=== PATIENT | female | born 1975 | race Caucasian/White ===

== ENCOUNTER 2023-02-27 21:58 | Inpatient (IN) ==
[2023-02-27] MEDS ORDERED: Al Hydrox/Mg Hydrox/Simet LIQ 30 ML UDC PO PRN (22:03)
[2023-02-28] MEDS: Vitamin THERAPEUTIC TAB PO SCH (09:25)
[2023-03-01] MEDS: Vitamin THERAPEUTIC TAB PO SCH (08:28)
[2023-03-01] MEDS ORDERED: Nicotine Lozenge mini 2 MG LOZNG.MINI MT PRN (11:45)
[2023-03-01] MEDS: Nicotine PATCH 21 MG/24 HR PATCH TRANSDERM SCH (12:37)
[2023-03-01] MEDS: Nicotine GUM 4MG FRUIT FLAVOR PO PRN (12:38)
[2023-03-02] MEDS: Nicotine PATCH 21 MG/24 HR PATCH TRANSDERM SCH (07:30)
[2023-03-02] MEDS: Vitamin THERAPEUTIC TAB PO SCH (07:31)
[2023-03-02 08:07] LABS: HDL Cholesterol 124.2 mg/dL
[2023-03-02] MEDS: Nicotine GUM 4MG FRUIT FLAVOR PO PRN ×3 (08:23→17:41)
[2023-03-02] MEDS: Calcium Carb (TUMS) 500 mg CHEW TAB PO SCH (20:13)
[2023-03-03] MEDS: Nicotine PATCH 21 MG/24 HR PATCH TRANSDERM SCH (07:11)
[2023-03-03] MEDS: Vitamin THERAPEUTIC TAB PO SCH (07:12)
[2023-03-03] MEDS: Calcium Carb (TUMS) 500 mg CHEW TAB PO SCH ×2 (07:12→20:11)
[2023-03-03] MEDS: Nicotine GUM 4MG FRUIT FLAVOR PO PRN ×5 (07:14→19:32)
[2023-03-04] MEDS: Nicotine PATCH 21 MG/24 HR PATCH TRANSDERM SCH (08:09)
[2023-03-04] MEDS: Calcium Carb (TUMS) 500 mg CHEW TAB PO SCH ×2 (08:12→20:07)
[2023-03-04] MEDS: Vitamin THERAPEUTIC TAB PO SCH (08:13)
[2023-03-04] MEDS: Nicotine GUM 4MG FRUIT FLAVOR PO PRN ×4 (08:15→17:41)
[2023-03-05] MEDS: Nicotine PATCH 21 MG/24 HR PATCH TRANSDERM SCH (08:16)
[2023-03-05] MEDS: Calcium Carb (TUMS) 500 mg CHEW TAB PO SCH ×2 (08:16→20:23)
[2023-03-05] MEDS: Vitamin THERAPEUTIC TAB PO SCH (08:16)
[2023-03-05] MEDS: Nicotine GUM 4MG FRUIT FLAVOR PO PRN ×4 (08:29→20:25)
[2023-03-06] MEDS: Vitamin THERAPEUTIC TAB PO SCH (08:26)
[2023-03-06] MEDS: Nicotine PATCH 21 MG/24 HR PATCH TRANSDERM SCH (08:26)
[2023-03-06] MEDS: Calcium Carb (TUMS) 500 mg CHEW TAB PO SCH (08:26)
[2023-03-06] MEDS: Nicotine GUM 4MG FRUIT FLAVOR PO PRN ×2 (08:30→10:53)
== END 2023-03-06 14:37 | disposition home or self-care (01) | DRG 753 ==
LOC: BSU 22:02
PROVIDERS: ADMIT Psychiatry & Neurology Psychiatry; ATTEND Psychiatry & Neurology Psychiatry